=== PATIENT | female | born 1945 | race Hispanic/Latino ===

== ENCOUNTER 2017-12-11 19:01 | Emergency (ER) | payer OTHER, MEDICARE ==
[~2017-12-11 19:01] MED LIST: ACET-2247 PO; ATOR20TA65 PO; DOCU100C19 PO; DOXE6TAB3 PO; IBUP-2353 PO
[2017-12-11 19:50] LABS: CREATININE 0.8 mg/dL (0.5-1.5); POTASSIUM 3.4 mmol/L (3.5-5.1)
[2017-12-11 19:52] LABS: INR 0.89 (0.85-1.15); PARTIAL THROMBOPLASTIN TIME 23.1 SEC (26.3-35.5); PROTHROMBIN TIME 9.4 SEC (9.6-11.6)
[2017-12-11 19:55] LABS: ALBUMIN 3.4 g/dL (3.5-5.0); BILIRUBIN,TOTAL 0.2 mg/dL (0.2-1.0)
[2017-12-11 20:01] LABS: BASOPHILS % (AUTO) 0.8 % (0.0-5.0); EOSINOPHILS % (AUTO) 0.6 % (0.0-8.0); LYMPHOCYTES % (AUTO) 34.9 % (21.0-51.0); MEAN CORPUSCULAR HEMOGLOBIN 28.1 pg (27.0-33.0); MEAN CORPUSCULAR HGB CONC 34.3 g/dL (32.0-36.0); MEAN CORPUSCULAR VOLUME 81.7 fL (79-99); MONOCYTES % (AUTO) 6.1 % (3.0-13.0); NEUTROPHILS % (AUTO) 57.6 % (40.0-77.0); PLATELET COUNT (AUTO) 352 K/uL (130-400); RED BLOOD CELL COUNT(AUTO) 3.67 MIL/uL (4.00-5.50); RED CELL DISTRIBUTION WIDTH 16.1 % (11.0-15.5); WHITE BLOOD COUNT (AUTO) 7.4 K/uL (4.8-10.8)
[2017-12-11] MEDS ORDERED: IOPAMIDOL-370 75 ML VIAL IV ONE (20:33)
[2017-12-11 20:42] LABS: APPEARANCE,URINE Clear (CLEAR); BILIRUBIN,URINE Negative (NEGATIVE); COLOR,URINE Yellow (YELLOW); GLUCOSE, URINE (UA) Negative (NEGATIVE); KETONES,URINE Negative (NEGATIVE); LEUKOCYTE ESTERASE ,URINE Moderate (NEGATIVE); NITRATE,URINE Positive (NEGATIVE); OCCULT BLOOD,URINE Small (NEGATIVE); PH,URINE 7.5 (5.0-8.0); PROTEIN,URINE Negative (NEGATIVE)
[2017-12-11 21:21] LABS: BACTERIA,URINE Moderate /HPF (None Seen)
[2017-12-11 21:22] LABS: RBC,URINE None Seen /HPF (0-1)
[2017-12-11] MEDS ORDERED: CEFTRIAXONE SODIUM 1 GM ONE (21:55)
== END 2017-12-11 22:23 | disposition home or self-care (01) ==
LOC: EDH 19:01
DX: N30.00 Acute cystitis without hematuria (principal); N93.9 Abnormal uterine and vaginal bleeding, unspecified; I10 Essential (primary) hypertension; Z98.890 Other specified postprocedural states; Z79.899 Other long term (current) drug therapy
CPT/HCPCS: 36415; 74177; 76856; 80053; 81001; 85025; 85610; 85730; 87088; 87186; 96374; 99285; J0696; Q9967

== ENCOUNTER 2019-01-04 17:40 | Emergency (ER) | payer OTHER, MEDICARE ==
[~2019-01-04 17:40] MED LIST changes: +DOCU-282 PO; -DOCU100C19 PO
[2019-01-04] MEDS ORDERED: ACETAMINOPHEN EXTRA STRENGTH 500 MG TABLET ONE (18:07)
== END 2019-01-04 19:47 | disposition home or self-care (01) ==
LOC: EDH 17:40
DX: M79.662 Pain in left lower leg (principal); I10 Essential (primary) hypertension; Z98.890 Other specified postprocedural states
CPT/HCPCS: 73590; 93925

== ENCOUNTER 2022-11-13 10:45 | Emergency (ER) | payer OTHER, MEDICARE ==
[~2022-11-13] VITALS: Ht 144.8 cm; Wt 64.4 kg
[~2022-11-13 10:45] MED LIST changes: -IBUP-2353 PO; +IBUP-2784 PO
[2022-11-13] MEDS ORDERED: ACET-66 PO (13:42)
[2022-11-13 13:55] VITALS: BP 154/80
[2022-11-13] MEDS ORDERED: ACETAMINOPHEN 500 MG TABLET PO ONE (14:00)
== END 2022-11-13 14:09 | disposition home or self-care (01) ==
LOC: EDH 10:45
DX: S60.221A Contusion of right hand, initial encounter (principal); E78.00 Pure hypercholesterolemia, unspecified; Z79.899 Other long term (current) drug therapy; Z98.890 Other specified postprocedural states; W01.0XXA Fall on same level from slipping, tripping and stumbling without subsequent striking against object, initial encounter; Y93.89 Activity, other specified; Y92.89 Other specified places as the place of occurrence of the external cause; Y99.8 Other external cause status
CPT/HCPCS: 73130

== ENCOUNTER 2025-01-27 23:07 | Emergency (ER) | payer OTHER, MEDICARE ==
[~2025-01-27] VITALS: Ht 162.6 cm; Wt 74.8 kg
[~2025-01-27 23:07] MED LIST changes: -ACET-2247 PO; -ATOR20TA65 PO; -DOCU-282 PO; -DOXE6TAB3 PO; +FERR325T29 PO; +IBUP-2077 PO; -IBUP-2784 PO
--- NOTE | 2025-01-28 | NUR ---
CARE ASSUMED AT THIS TIME.
[2025-01-28 01:11] LABS: CREATININE 0.6 mg/dL (0.5-1.0); GLOMERULAR FILTR. RATE CALC 92.0 mL/min (>90); GLUCOSE,RANDOM 136.0 mg/dL (70-105); SODIUM SERUM 143.0 mmol/L (136-145); UREA NITROGEN, BLOOD 16.0 mg/dL (7-18)
[2025-01-28 01:13] LABS: IMMATURE GRANULOCYTE ABSOLUTE 0.04 K/uL (0-1); NUCLEATED RED BLOOD CELLS 0.0 % (0.0-0.19); PLATELET COUNT (AUTO) 267 K/uL (130-400); RED BLOOD CELL COUNT(AUTO) 4.32 MIL/uL (4.00-5.50); RED CELL DISTRIBUTION WIDTH 12.8 % (11.0-15.5); WHITE BLOOD COUNT (AUTO) 11.0 K/uL (4.8-10.8)
--- NOTE | 2025-01-28 01:26 | HMCIMG ---
EXAM: CR right Shoulder, 2 View. CLINICAL HISTORY: Fall. 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 There is an interval worsening in the fracture alignment with mild medial and proximal displacement of the distal segment. Mild osteopenia. No joint dislocation. Mild degenerative changes at the acromioclavicular and glenohumeral joints. The soft tissues are unremarkable. 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 There is an interval worsening in the fracture alignment with mild medial and proximal displacement of the distal segment. /[place]
--- NOTE | 2025-01-28 01:29 | ERN ---
ED Note History of Present Illness Stated Complaint: FALL Chief Complaint: Mechanical Fall Time Seen by MD: 23:28 Time Seen by Midlevel: 23:30 Dictation: 79-year-old coming in complaining of left shoulder pain. As per daughter patient stood up from the table felt little dizzy grabbed onto the table and fell back landing on her buttocks. Patient is complaining of left shoulder pain, patient had a previous fall in November where she suffered a femoral neck fracture. Patient was admitted at that time. Daughter states they have not follow up with any orthopedic surgeon. At this time patient denies any head injury, no blood thinners, no LOC, no back pain, no sacral pain. Denies any chest pain or dizziness at this time. Daughter states dizziness has been going on and off for the last couple of months and has already been seen by her PCP for this. Allergies: Coded Allergies: No Known Drug Allergies (Unverified Allergy, Unknown, 05/02/16) Home Meds Reported Medications Ferrous Sulfate (Ferosul) 325 Mg (65 Mg Iron) Tablet, 325 MG PO DAILY for 30 Days, TAB 11/28/24 Ibuprofen (Ibuprofen 800 mg Tab) 800 Mg Tab, 1 TAB PO TID for pain, #60 TAB 0 Refills 11/28/24 Past Medical History Past Medical History: Hypertension Surgical History: None Review of System Dictation Constitutional: Negative for fever,chills, and weight loss Eyes: Negative for injury, pain,redness, and discharge ENT: Negative for injury,pain or swelling Cardiovascular: Negative for chest pain, palpitations, and edema Respiratory: Negative for shortness of breath, cough, and wheezing, Abdomen/GI: Negative for abdominal pain, nausea, vomiting, diarrhea, and constipation Back: Negative for injury and pain : Negative for injury, bleeding and discharge MS/Extremity: Negative for injury and deformity, complaining of left shoulder pain Skin: Negative for rash, and discoloration Neuro: Negative for headache, weakness, numbness, tingling, and seizure Psych: Negative for suicide ideation, homicidal ideation, and hallucinations Review of Systems: was completed Initial Vital Sign VS Vital Signs Date Time Temp Pulse Resp B/P (MAP) Pulse Ox O2 Delivery O2 Flow Rate FiO2 01/28/25 00:05 98.2 80 16 140/68 98 Room Air* 0 21 Physical Exam Dictation General: awake, alert, NAD Head/Face: Normocephalic, atraumatic Eyes: PERRL, EOMI, vision at baseline ENT: oral cavity clear, TMs clear, no signs of infection Neck: Trachea midline, supple, no nuchal rigidity Cardiovascular: RRR, normal S1/S2, No MRGs, no JVD Respiratory: CTAB, no respiratory distress, No rales or wheezes Abdomen: Soft, non-tender, non-distended, normal bowel sounds, no guarding or rebound. Skin: Warm, dry, normal turgor, no rash MS/Extremity: Pulses equal, no cyanosis, neurovascular intact, FROM Neuro: COAx4, GCS 15, strength 5/5, CN 2-12 intact, normal cerebellar exam, normal gait, Psych: Normal behavior, mood, and affect normal Results (Laboratory/Radiology) Laboratory/Radiology Laboratory Tests Test 01/28/25 00:49 White Blood Count 11.0 K/uL (4.8-10.8) H Red Blood Count 4.32 MIL/uL (4.00-5.50) Hemoglobin 12.5 g/dL (12.0-16.0) Hematocrit 38.9 % (36-48) Mean Corpuscular Volume 90.0 fL (79-99) Mean Corpuscular Hemoglobin 28.9 pg (27.0-33.0) Mean Corpuscular Hemoglobin Concent 32.1 g/dL (32.0-36.0) Red Cell Distribution Width 12.8 % (11.0-15.5) Platelet Count 267 K/uL (130-400) Mean Platelet Volume 10.1 fL (7.5-10.5) Immature Granulocyte % (Auto) 0.4 % (0-1) Neutrophils (%) (Auto) 85.4 % (40.0-77.0) H Lymphocytes (%) (Auto) 9.4 % (21.0-51.0) L Monocytes (%) (Auto) 4.3 % (3.0-13.0) Eosinophils (%) (Auto) 0.2 % (0.0-8.0) Basophils (%) (Auto) 0.3 % (0.0-5.0) Neutrophils # (Auto) 9.4 K/uL (1.8-7.7) H Lymphocytes # (Auto) 1.0 K/uL (1.0-4.8) Monocytes # (Auto) 0.5 K/uL (0.1-1.0) Eosinophils # (Auto) 0.02 K/uL (0.00-0.70) Basophils # (Auto) 0.03 K/uL (0.00-0.20) Absolute Immature Granulocyte (auto 0.04 K/uL (0-1) Nucleated Red Blood Cells 0.0 % (0.0-0.19) White Cell Morphology Comment See comments Sodium Level 143 mmol/L (136-145) Potassium Level 3.7 mmol/L (3.5-5.1) Chloride Level 106 mmol/L (101-111) Carbon Dioxide Level 29 mmol/L (21-32) Blood Urea Nitrogen 16 mg/dL (7-18) Creatinine 0.6 mg/dL (0.5-1.0) Glomerular Filtration Rate Calc 92 mL/min (>90) Random Glucose 136 mg/dL (70-105) H Total Calcium 9.0 mg/dL (8.5-10.1) Troponin I High Sensitivity 8 ng/L (4-50) Labs Reviewed?: Yes EKG Comment: EKGs done at [facility], sinus rhythm rate 77 beats per minute. Left axis deviation. Nonspecific T abnormalities, diffuse leads. No STEMI interpreted by ER MD. X-RAY Comment: [address] [address] [place] [address] IMAGING REPORT Signed PATIENT: STAR JUAREZ MR#: [id number] : 1945 SEX: F AGE: 79 LOCATION: [facility] ORDER 29 STATUS: REG ER REPORT#: [id number] SERVICE REASON: fall ORDERING PHYSICIAN: TONY SAN NP PROCEDURE: SHOL 2V LT - SHOULDER COMP 2+VWS LT EXAM: CR right Shoulder, 2 View. CLINICAL HISTORY: Fall. 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 There is an interval worsening in the fracture alignment with mild medial and proximal displacement of the distal segment. Mild osteopenia. No joint dislocation. Mild degenerative changes at the acromioclavicular and glenohumeral joints. The soft tissues are unremarkable. 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 There is an interval worsening in the fracture alignment with mild medial and proximal displacement of the distal segment. /[place] DICTATED BY: ESTEFANY ARROYO Jr., MD DATE: 01/28/25225 ELECTRONICALLY SIGNED BY: ESTEFANY ARROYO Jr., MD DATE: 01/28/25225 ED Course ED Course Orders Procedure Category Date Status Time Cbc With Differential LAB 01/27/25 Complete 23:28 Basic Metabolic Panel LAB 01/27/25 Complete 23:28 12 Lead Ekg Tracing- EKG 01/27/25 Logged Technical 23:28 Shoulder Comp 2+Vws Lt RAD 01/27/25 Resulted 23:28 Orthostatic Vital CPOE 01/27/25 Transmitted Signs 23:28 Tramadol Hcl (Ultram) PHA 01/28/25 Complete 01:24 Troponin I High LAB 01/28/25 Complete Sensitivity 01:28 Chest 1vw RAD 01/28/25 Taken 02:10 Current Medications Medications (Trade) Dose Ordered Sig/[place] Route PRN Reason Start Time Stop Time Status Last Admin Dose Admin Tramadol HCl (UltRAM) 50 mg ONCE STAT PO 01/28/25 01:24 01/28/25 01:26 DC 01/28/25 01:31 Vital Signs Date Time Temp Pulse Resp B/P (MAP) Pulse Ox O2 Delivery O2 Flow Rate FiO2 01/28/25 01:55 98.4 86 18 158/86 97 Room Air* 0 21 01/28/25 01:22 98.4 54 18 147/66 98 Room Air* 0 21 01/28/25 00:06 98.4 82 18 140/82 98 Room Air 01/28/25 00:05 98.2 80 16 140/68 98 Room Air* 0 21 Medical Decision Making MDM MDM: 79-year-old coming in complaining of left shoulder pain. As per daughter patient stood up from the table felt little dizzy grabbed onto the table and fell back landing on her buttocks. Patient is complaining of left shoulder pain, patient had a previous fall where she suffered a femoral neck fracture in November 2024. Arrived with arm sling in place. No pain when i palpate the hip. No pain on c spine, or l spine. rull ROM to lower extremities. She was admitted here and sent to a nursing rehab after. Daughter states they have not follow up with any orthopedic surgeon. At this time patient denies any head injury, no blood thinners, no LOC, no back pain, no sacral pain. Denies any chest pain or dizziness at this time. Daughter states dizziness has been going on and off for the last couple of months and has already been seen by her PCP for this. Blood work is unremarkable. EKGs shows no ST elevation or dysrhythmias. 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 Vital signs are stable, no signs of acute distress. Orthostatic vital sign changes most likely secondary to pain from her recent humeral neck fracture. No evidence of volume depletion or cardiac etiology. No signs of neurovascular compromise. Pain is controlled with the oral analgesics. Patient is stable for outpatient management, discussed with daughter that she needs to follow up with Orthopedic surgery in 7-10 days for evaluation of nonunion. Instructed to return to the ED for worsening pain numbness or weakness or fever. just prior to d/c pt verbalized missing the cap on her front tooth. States she does not recall if she spit it out. Chest xray will be ordered to make sure it is not in the to respiratory tract. Differential diagnosis: Dehydration, educated abnormality, Rationale: Tests considered and ordered secondary to shared decision making include: Previous outside records reviewed: Old ER visits. Risk of complication and/or morbidity or mortality of patient management: None Medications-Per medication reconciliation Need for hospitalization: Patient does not meet criteria for hospitalization. Need for emergency major/minor surgery: No There are no social concerns with this patient. Prescription drug management Prescriptions will include symptomatic care Patient's prior external medical records from other ER visits were reviewed by me as indicated. Prior testing and results from previous visits were reviewed. Prior tests were taken into account with medical decision making and resource utilization, independent historian/historians were used to obtain complete medical history. I independently interpreted the test that were performed, results were reviewed by me and considered findings on radiology if ordered. Medical management and examination interpretation discussions were had by me with other qualified healthcare professionals as indicated for the patient's care. Chest x-ray shows no obvious tooth in the patient's bilateral rhonchi. Patient also states she may have spit out the cap to her tooth rather than swallow it. Shoulder films show malunion and not good healing of her left humerus fracture. DX & DISP Disposition: Discharge Departure Impression: Primary Impression: Fall Additional Impression: Fx humeral neck Condition: Stable Additional Instructions: please follow up with the Orthopedic surgeon as soon as possible. return to Er as needed . Referrals: JEAN HOPE DO (PCP) LEYLA MCKEON DO Time of Disposition: 01:28 Your left humerus fracture has not shown much healing at all since the original injury. I recommend you see your orthopedic surgeon about further treatments. Otherwise your workup has been negative from your fall. There was concern about you swallowing the cap to your tooth. A chest x-ray does not reveal the cap however they are sometimes hard to see. If you start to develop a cough or chest pain fevers chills signs of a pneumonia please return to the emergency room or see your primary care physician. I have reviewed the case, and I agree with, Diagnosis and Plan TONY SAN NP Jan 28, 2025 01:29 ALEXIS HICKS MD Jan 28, 2025 03:00
--- NOTE | 2025-01-28 03:04 | HMCIMG ---
EXAM: CR Chest, 1 view CLINICAL HISTORY: Shortness of breath. COMPARISON: Chest radiograph dated 11/28/2024. FINDINGS: Limited evaluation of the left lower zone due to overlying cardiac shadow. The remaining lung [place] are clear. No acute infiltrate, effusion, pneumothorax. The cardiomediastinal silhouette is within normal limits. Mild atherosclerotic aorta. No acute osseous abnormality. IMPRESSION: Limited evaluation of the left lower zone due to overlying cardiac shadow. No gross acute cardiopulmonary process is evident. No interval changes. /[place]
[2025-01-28 03:25] VITALS: BP 142/76; PULSE 88; RESP 18; TEMP 98.4; O2SAT 97
--- NOTE | 2025-01-28 06:47 | EKG ---
[facility] Test Date: 2025-01-28 Test Time: 00:01:22 Pat Name: STAR VASQUEZ Department: ED Room: Gender: F Drafter Cartographic: [id number] : 1945 Requested By: TONY SAN Order Number: [id number] Reading MD: Eugene Deshpande Measurements Intervals [place] Rate: 77 P: 72 CT: 170 QRS: -38 QRSD: 101 T: 0 QT: 366 QTc: 414 Interpretive Statements Sinus rhythm Left axis deviation Nonspecific T abnormalities, diffuse leads Compared to ECG 11/28/2024 10:22:40 Left-axis deviation now present T-wave abnormality now present Electronically Signed On 01-28-2025 15:35:41 CDT by Eugene Deshpande Please click the below link to view image of tracing.
== END 2025-01-28 03:26 | disposition home or self-care (01) ==
LOC: EDH 23:07
DX: S42.292A Other displaced fracture of upper end of left humerus, initial encounter for closed fracture (principal); I10 Essential (primary) hypertension; Z79.1 Long term (current) use of non-steroidal anti-inflammatories (NSAID); W18.39XA Other fall on same level, initial encounter; Y93.89 Activity, other specified; Y92.89 Other specified places as the place of occurrence of the external cause; Y99.8 Other external cause status
CPT/HCPCS: 36415; 71045; 73030; 80048; 84484; 85025; 93005; 99285